=== PATIENT | male | born 1950 | race Caucasian/White ===

== ENCOUNTER 2018-10-17 18:01 | Emergency (ER) | payer MEDICARE ==
[2018-10-17] MEDS ORDERED: Ondansetron INJ* 2 MG/ML VIAL IV ONE (20:34)
[2018-10-17] MEDS ORDERED: NS 0.9% 1000 ML** 1,000 ML IV ONE ×2 (20:35→22:50)
--- NOTE | 2018-10-17 20:46 | ED ---
GI/ HPI - HPI Summary HPI Summary: Pt is a 68 y/o M presenting to the ED with a chief complaint of GI issues. He states he was on his way to work this morning when he got gas, and after getting back in the car he began vomiting, and it has not stopped. He also reports diaphoresis, shaking, nausea, slight abd pain, and hx of ulcerated esophagus. He denies diarrhea, constipation, CP, SOB, and hematuria. Standing worsens his sx, and lying down tends to alleviate it. - History of Current Complaint Chief Complaint: EDNauseaVomitDiarrh Time Seen by Provider: 10/17/18 20:01 Stated Complaint: DEHYDRATION/VOMITING PER PT Hx Obtained From: Patient Onset/Duration: Started Hours Ago, Still Present Timing: Constant, Lasting Hours Severity: Moderate Current Severity: Moderate Pain Intensity: 5 Location of Pain: Diffuse Associated Signs and Symptoms: Positive: Nausea, Vomiting, Diaphoresis, Abdominal Pain. Negative: Constipation, Diarrhea, Chest Pain, UTI Symptoms Aggravating Factor(s): Movement - standing Alleviating Factor(s): Lying Still - Allergy/Home Medications Allergies/Adverse Reactions: Allergies Allergy/AdvReac Type Severity Reaction Status Date / Time No Known Allergies Allergy Verified 10/17/18 18:09 PMH/Surg Hx/FS Hx/Imm Hx Previously Healthy: Yes Endocrine/Hematology History: Denies: Hx Diabetes, Hx Thyroid Disease Cardiovascular History: Reports: Hx Hypertension Denies: Hx Hypercholesterolemia, Hx Pacemaker/ICD, Hx Peripheral Vascular Disease Respiratory History: Reports: Hx Sleep Apnea - HAD A PROCEDURE FOR GI History: Reports: Hx Ulcer - 15 YEARS AGO Musculoskeletal History: Reports: Other Musculoskeletal History - obesity Denies: Hx Arthritis, Hx Rheumatoid Arthritis, Hx Osteoporosis Sensory History: Reports: Hx Contacts or Glasses - READING GLASSES Denies: Hx Hearing Aid Opthamlomology History: Reports: Hx Contacts or Glasses - READING GLASSES Neurological History: Denies: Hx Headaches, Hx Seizures, Hx Transient Ischemic Attacks (TIA) Psychiatric History: Reports: Hx Depression - ON MEDICATION FOR Denies: Hx Panic Disorder - Cancer History Cancer Type, Location and Year: none - Surgical History Surgery Procedure, Year, and Place: NASAL [id number]. 2012- ENT SURGERY Hx Anesthesia Reactions: No - Immunization History Immunizations Up to Date: Yes Infectious Disease History: No Infectious Disease History: Denies: Traveled Outside the [place] in Last 30 Days - Family History Known Family History: Positive: Hypertension - Social History Alcohol Use: Daily Hx Substance Use: No Substance Use Type: Reports: None Hx Tobacco Use: Yes Smoking Status (MU): Former Smoker Review of Systems Positive: Skin Diaphoresis, Other - shaking Negative: Chest Pain Negative: Shortness Of Breath Positive: Abdominal Pain, Vomiting, Nausea. Negative: Diarrhea, Other - constipation Negative: hematuria All Other Systems Reviewed And Are Negative: Yes Physical Exam - Summary Physical Exam Summary: Constitutional: Well-developed, Well-nourished, Alert. (-) Distressed Skin: Warm, Dry HENT: Normocephalic; Atraumatic Eyes: Conjunctiva normal Neck: Musculoskeletal ROM normal neck. (-) JVD, (-) Stridor, (-) Tracheal deviation Cardio: Rhythm regular, rate normal, Heart sounds normal; Intact distal pulses; The pedal pulses are 2+ and symmetric. Radial pulses are 2+ and symmetric. (-) Murmur Pulmonary/Chest wall: Effort normal. (-) Respiratory distress, (-) Wheezes, (-) Rales Abd: Soft, (-) tenderness, (-) Distension, (-) Guarding, (-) Rebound Musculoskeletal: (-) Edema Lymph: (-) Cervical adenopathy Neuro: Alert, Oriented x3 Psych: Mood and affect Normal Triage Information Reviewed: Yes Vital Signs On Initial Exam: Initial Vitals Temp Pulse Resp BP Pulse Ox 97.4 F 127 20 117/80 99 10/17/18 18:04 10/17/18 18:04 10/17/18 18:04 10/17/18 18:04 10/17/18 18:04 Vital Signs Reviewed: Yes Diagnostics - Vital Signs Vital Signs Temp Pulse Resp BP Pulse Ox 10/17/18 20:33 118 19 97 10/17/18 18:04 97.4 F 127 20 117/80 99 - Laboratory Result Diagrams: 10/17/18 21:05 10/17/18 21:05 Lab Statement: Any lab studies that have been ordered have been reviewed, and results considered in the medical decision making process. - EKG 2047 Cardiac Rate: Tachycardia - 108bpm EKG Rhythm: Sinus Tachycardia ST Segment: Non-Specific Ectopy: PVCs Summary of EKG Findings: EKG at 2047 shows sinus tachycardia at 108bpm with normal LA, LBBB, normal QTc, normal axis, elevated STs in v1, v2, v3, and depressed in v5, v6, and lead II, normal T-waves, there are some PVCs present. 2320 Cardiac Rate: Tachycardia - 110bpm EKG Rhythm: Sinus Tachycardia ST Segment: Non-Specific Ectopy: None Summary of EKG Findings: EKG at 2320 shows sinus tachycardia at 110bpm with nml LA, LBBB, nml QTc, elevated ST in v1, v3, and v4, inverted T waves in lead I and v6, EKG unchanged. Re-Evaluation - Re-Evaluation 1st re-eval Re-Evaluation Time: 22:49 Change: Unchanged Comment: Pt has no abd tenderness. He is slightly tachycardic but has no abd pain. GIGU Course/Dx - Course Course Of Treatment: Pt is a 68 y/o M presenting to the ED with a chief complaint of GI issues. He reports vomiting, diaphoresis, shaking, nausea, slight abd pain, and hx of ulcerated esophagus. He denies diarrhea, constipation , CP, SOB, and hematuria. Standing worsens his sx, and lying down tends to alleviate it. Pt's physical exam is nml. EKG at 2047 shows sinus tachycardia at 108bpm with normal LA, LBBB, normal QTc, normal axis, elevated STs in v1, v2 , v3, and depressed in v5, v6, and lead II, normal T-waves, there are some PVCs present. His physical exam is unremarkable. Pts lab results show MCH of 32, Chloride of 97, BUN/Creatinine ratio of 23.9, AST of 54, CRP of 12.61, and Lipase of <10. As of 2248, the pt has no abd tenderness. He is slightly tachycardic but has no abd pain. As of 99, the pt was able to ambulate around the emergency department without issues. EKG at 2320 shows sinus tachycardia at 110bpm with nml LA, LBBB, nml QTc, elevated ST in v1, v3, and v4 , inverted T waves in lead I and v6, EKG unchanged. Pt will be sent home with dx of nausea and vomiting. He is stable and agreeable with this plan. - Diagnoses Provider Diagnoses: Nausea and vomiting Discharge - Sign-Out/Discharge Documenting (check all that apply): Patient Departure Patient Received Moderate/Deep Sedation with Procedure: No - Discharge Plan Condition: Stable Disposition: HOME Prescriptions: Prochlorperazine TAB* [Compazine Tab*] 10 mg PO Q6H PRN #20 tab PRN Reason: Nausea Patient Education Materials: Dehydration (ED), Acute Nausea and Vomiting (ED) Print Language: GRENADIAN Referrals: Keith Marie MD [Primary Care Provider] - Additional Instructions: Please follow up with your primary care provider within the next 2-3 days. Return to the emergency department with any new or worsening symptoms. - Billing Disposition and Condition Condition: STABLE Disposition: Home - Attestation Statements Document Initiated by Scribe: Yes Documenting Scribe: Kelly Salas Provider For Whom Nathen is Documenting (Include Credential): Radha Novak MD. Scribe Attestation: Kelly Chris, scrdaciaed for Radha Palomo MD. on 10/18/18 at 0516. Scribe Documentation Reviewed: Yes Provider Attestation: The documentation as recorded by the scribeKelly accurately reflects the service I personally performed and the decisions made by me, Radha Palomo MD. Status of Scribe Document: Viewed
[2018-10-17 21:11] LABS: ABS Lymphocytes 0.3 10^3/ul (1.0-4.8); ABS Neutrophils 6.3 10^3/ul (1.5-7.7); Eosinophil % 0.1 %; Hematocrit 47 % (42-52); Hemoglobin 16.4 g/dL (14.0-18.0); Lymphocyte % 4.3 %; Mean Corpuscular HGB Conc 35 g/dL (31-36); Mean Corpuscular Hemoglobin 32 pg (27-31); Mean Corpuscular Volume 93 fL (80-94); Mean Platelet Volume 7.6 fL (7.4-10.4); Nucleated Red Blood Cells % 0.1; Platelet Count 299 10^3/uL (150-450); Red Blood Count 5.08 10^6 /uL (4.18-5.48); Red Cell Distribution Width 14 % (10-15); White Blood Count 7.6 10^3/uL (3.5-10.8)
[2018-10-17 21:29] LABS: ALT 50 U/L (7-52); AST 54 U/L (13-39); Albumin 4.4 g/dL (3.2-5.2); Albumin/Globulin Ratio 1.4 (1-3); Alkaline Phosphatase 48 U/L (34-104); Anion Gap 11 mmol/L (2-11); BUN/Creatinine Ratio 23.9 (8-20); Blood Urea Nitrogen 22 mg/dL (6-24); C Reactive Protein 12.61 mg/L (<8.01); CO2 Carbon Dioxide 28 mmol/L (22-32); Calcium 9.3 mg/dL (8.6-10.3); Chloride 97 mmol/L (101-111); EGFR African American 99.6 (>60); EGFR Non-African American 82.3 (>60); Globulin 3.1 g/dL (2-4); Glucose 151 mg/dL (70-100); Potassium 4.8 mmol/L (3.5-5.0); Sodium 136 mmol/L (135-145); Total Protein 7.5 g/dL (6.4-8.9)
[2018-10-17 21:30] LABS: Troponin I 0.01 ng/mL (<0.04)
[2018-10-17] MEDS ORDERED: PROCHLORPERAZINE INJ 5 MG/ML 2 ML VIAL IV ONE (22:05)
[2018-10-17 22:29] LABS: Urine Appearance Cloudy; Urine Bacteria Absent (Absent); Urine Bilirubin Negative (Negative); Urine Blood Negative (Negative); Urine Color Yellow; Urine Glucose Negative (Negative); Urine Ketones 1+ (Negative); Urine Nitrite Negative (Negative); Urine Protein 2+(100 mg/dL) (Negative); Urine Red Blood Cell Absent (Absent); Urine Squamous Epithelial Cell Present (Absent); Urine Urobilinogen Negative (Negative); Urine White Blood Cell Trace(0-5/hpf) (Absent)
[2018-10-18 01:43] VITALS: BP 169/95
--- NOTE | 2018-10-20 09:10 | PN ---
Progress Note - Progress Note Date of Service: 10/17/18 Note: Urine culture growing 1-10k GBS. According to ED note there were no urinary sxs. Will not treat at this time.
== END 2018-10-18 01:43 | disposition home or self-care (01) ==
LOC: ED 18:01
DX: R11.2 Nausea with vomiting, unspecified (principal); I10 Essential (primary) hypertension; Z87.891 Personal history of nicotine dependence
CPT/HCPCS: 36415; 80053; 81003; 81015; 83605; 83690; 83880; 84484; 85025; 86140; 87040; 87077; 87086; 93005; 96361; 96374; 96375; 99284; J0780; J2405

== ENCOUNTER 2019-06-01 06:31 | Day surgery (SDC) | payer MEDICARE ==
--- NOTE | 2019-05-31 18:22 | HP ---
PREOPERATIVE HISTORY AND PHYSICAL: DATE OF ADMISSION: 06/01/19 - [facility] ADMITTING PHYSICIAN: Dr. Janelle Thompson.* (DICTATED BY SHERRIE HORN) CHIEF COMPLAINT: Right elbow pain. HISTORY OF PRESENT ILLNESS: This is a 69-year-old male with several months of right elbow pain that began without known cause. He was treated with a course of doxycycline and he actually drained the elbow himself, which drained clear fluid. He continues to have persistent redness and pain over the elbow even after treatment and therefore is seeking surgical intervention with Dr. Thompson. PAST MEDICAL HISTORY: Hypertension, GERD, depression. PAST SURGICAL HISTORY: Knee scope in 2013, uvulopharyngeal plasty in 2013, multiple colonoscopies. He denies anesthetic complications with any of these procedures and no history of blood clot. CURRENT MEDICATIONS: 1. Amlodipine besylate 5 mg 1 tab p.o. daily. 2. Venlafaxine HCl ER 75 mg 1 capsule p.o. daily. 3. Bupropion HCl 75 mg 1 tablet p.o. daily. 4. Clonazepam 1 mg 1 to 2 tabs by mouth q.h.s. 5. Omeprazole 40 mg 1 capsule by mouth q.a.m. 6. Lisinopril 40 mg 1 tab by mouth daily. ALLERGIES: None. REVIEW OF SYSTEMS: Negative for cephalic, cardiovascular, respiratory, gastrointestinal, genitourinary, skin, neurologic, endocrine, or hematologic issues. No fevers or chills. PHYSICAL EXAMINATION GENERAL: He is a well-developed, well-nourished male, seated on exam table, in no acute distress, with appropriate affect. VITAL SIGNS: Height 73 inches, weight 192 pounds. Pulse 76, blood pressure 122 /68. HEENT: Normocephalic, atraumatic. Hearing and vision are grossly intact, with extraocular movements intact. NECK: The trachea is midline and symmetrical. LUNGS: Clear to auscultation. No wheezes, rales, or rhonchi appreciated. CARDIO: Regular rate and rhythm. Normal S1, S2. No murmurs, rubs, or gallops noted. ABDOMEN: Nondistended. MUSCULOSKELETAL: Right upper extremity: The right elbow has a moderate to large amount of erythematous swelling on the posterior aspect of the elbow that is firm to palpation with some mild fluctuance. He has normal range of motion of the elbow joint, with a small full-thickness skin lesion at the tip of the olecranon process. Skin is otherwise intact. Sensation is intact and 2+ radial pulse. IMAGING: X-rays performed previously, AP, lateral, and oblique of the right elbow appeared normal. IMPRESSION: Right olecranon bursitis. PLAN: Right olecranon bursectomy with Dr. Thompson. The patient's questions were answered and he would like to proceed. He will follow up postoperatively and call if questions or concerns otherwise. SHERRIE HORN [id number]/[facility] #: [id number] ANSELMO
[~2019-06-01 06:31] MED LIST: Buffered Lidocaine 1% SYRIN* 1 ML/SYRINGE INTRADERM ONE; Dexamethasone IV* 4 MG/ML 1 ML (4 MG) IV SLOW PU ONE; Dexamethasone IV* 4 MG/ML 1 ML (4 MG) ONE; Famotidine IV* 10 MG/ML 2 ML (20 mg) IV ONE; Famotidine IV* 10 MG/ML 2 ML (20 mg) ONE; Lactated Ringers 1000 ML Bag* 1,000 ML IV SCH
[2019-06-01] MEDS ORDERED: ceFAZolin 2 GM PREMIX in ORs 2 GM/50 ML BAG ONE (06:45)
[2019-06-01] MEDS ORDERED: Naloxone* 0.4 MG/ML 1 ML VIAL IV PRN (08:01)
[2019-06-01] MEDS ORDERED: Lidocaine 0.5%* 50 ML SDV ONE (08:08)
[2019-06-01] MEDS ORDERED: Midazolam* 1 MG/ML 2 ML VIAL (2 MG) ONE (08:15)
[2019-06-01] MEDS ORDERED: fentaNYL* 50 MCG/ML 2 ML VIAL (100 MCG VIAL) ONE (08:15)
[2019-06-01] MEDS ORDERED: Bupivacaine 0.5% SDV PF* 30ML VIAL ONE (08:17)
[2019-06-01 09:59] VITALS: BP 152/93
--- NOTE | 2019-06-01 10:01 | OP ---
DATE OF OPERATION: 06/01/19 [facility] DATE OF : 54 SURGEON: Janelle Thompson MD TEMPLATE CLERK: SHERRIE Hoff ANESTHESIA: IV regional. PRE-OP DIAGNOSIS: Right olecranon bursitis. POST-OP DIAGNOSIS: Right olecranon bursitis. OPERATIVE PROCEDURE: Right olecranon bursectomy. ESTIMATED BLOOD LOSS: Zero. TOURNIQUET TIME: Approximately 30 minutes. INDICATIONS FOR PROCEDURE: Prasanth is a 69-year-old male who has persistent swelling, pain, and redness at his right olecranon bursa. He has a wound that has been very slow to heal as well, although it is no longer draining. He presents for olecranon bursectomy on the right. DESCRIPTION OF PROCEDURE: The patient was brought to the operating room, was given a IV regional anesthetic with a tourniquet around his right upper arm. The skin of his right upper extremity was prepped and draped in usual sterile fashion. The upper extremity was exsanguinated and the tourniquet elevated to 250 mmHg. A longitudinal incision was made over the mass with an ellipse around the portion of incompletely healed skin. The bursa was carefully dissected away from the skin and from the triceps tendon and olecranon. There was some fragile tissue adjacent to the tendon and this was debrided with a rongeur. All of the tissue including the skin lesion was sent for pathology and cultures were obtained as well. The wound was copiously irrigated with saline, the subcutaneous tissue was closed with 3-0 Vicryl suture and the skin edges reapproximated with shaniqua. The wound is dressed with Xeroform, 4x4, Webril and Ignacio wrap with ABDs for compression dressing. The patient tolerated the procedure well and was brought to the recovery room in good condition. [id number]/[facility] #: [id number] ANSELMO
== END 2019-06-01 10:13 | disposition home or self-care (01) ==
LOC: OREAST 06:31
PROVIDERS: ATTEND Orthopaedic Surgery
DX: M70.21 Olecranon bursitis, right elbow (principal); I10 Essential (primary) hypertension; K21.9 Gastro-esophageal reflux disease without esophagitis; F32.9 Major depressive disorder, single episode, unspecified; G47.33 Obstructive sleep apnea (adult) (pediatric); R05 Cough; Z87.891 Personal history of nicotine dependence
CPT/HCPCS: 87070; 87073; 87077; 87186; 87205; 88304; J0690; J1100; J2250; J3010; J3490

== ENCOUNTER 2019-08-22 15:32 | Observation (INO) ==
[2019-08-22 16:20] LABS: ABS Eosinophils 0.2 10^3/ul (0-0.6); ABS Lymphocytes 1.2 10^3/ul (1.0-4.8); ABS Monocytes 0.6 10^3/ul (0-0.8); Eosinophil % 3.7 %; Hematocrit 45 % (42-52); Hemoglobin 15.4 g/dL (14.0-18.0); Lymphocyte % 24.5 %; Mean Corpuscular HGB Conc 35 g/dL (31-36); Mean Corpuscular Hemoglobin 32 pg (27-31); Mean Corpuscular Volume 92 fL (80-94); Mean Platelet Volume 8.2 fL (7.4-10.4); Nucleated Red Blood Cells % 0.2; Platelet Count 239 10^3/uL (150-450); Red Blood Count 4.84 10^6 /uL (4.18-5.48); Red Cell Distribution Width 13 % (10-15); White Blood Count 4.9 10^3/uL (3.5-10.8)
[2019-08-22 16:54] LABS: ALT 22 U/L (7-52); AST 26 U/L (13-39); Albumin/Globulin Ratio 1.4 (1-3); Alkaline Phosphatase 50 U/L (34-104); Anion Gap 10 mmol/L (2-11); BUN/Creatinine Ratio 18.3 (8-20); Blood Urea Nitrogen 24 mg/dL (6-24); CO2 Carbon Dioxide 27 mmol/L (22-32); Calcium 9.6 mg/dL (8.6-10.3); Chloride 100 mmol/L (101-111); Creatine Kinase 178 U/L (10-223); EGFR Non-African American 54.6 (>60); Globulin 2.9 g/dL (2-4); Glucose 62 mg/dL (70-100); Magnesium 1.5 mg/dL (1.9-2.7); Sodium 137 mmol/L (135-145); Total Protein 6.9 g/dL (6.4-8.9)
[2019-08-22 17:00] LABS: Alcohol, S < 10 mg/dL (<10)
[2019-08-22] MEDS ORDERED: Magnesium Sulfate IV 1GM/100ML 1 GM/100 ML BAG IV ONE ×2 (17:10→20:46)
[2019-08-22 17:11] LABS: TSH (Thyroid Stimulating Horm) 1.27 mcIU/mL (0.34-5.60)
[2019-08-22] MEDS: NS 0.9% 1000 ml BAG 1,000 ML IV SCH (17:28)
[2019-08-22 18:05] LABS: Urine Appearance Cloudy; Urine Bilirubin Negative (Negative); Urine Blood Negative (Negative); Urine Color Yellow; Urine Glucose Negative (Negative); Urine Ketones Negative (Negative); Urine Nitrite Negative (Negative); Urine Protein Negative (Negative); Urine Urobilinogen Negative (Negative)
[2019-08-22 18:25] LABS: Urine Benzodiazepine Screen None Detected (None Detect); Urine Opiates Screen None Detected (None Detect)
[2019-08-22] MEDS ORDERED: Ondansetron 4 mg VIAL 2 MG/ML 2 ml VIAL IV PRN (20:40)
[2019-08-22] MEDS ORDERED: NS 0.9% 1000 ml BAG 1,000 ML IV SCH (20:45)
[2019-08-22 21:22] LABS: Free T4 1.17 ng/dL (0.61-1.12)
[2019-08-22] MEDS: Heparin 5000 UNITS/ML VIAL(*) 1 ml vial SUBCUT SCH (22:41)
[2019-08-22 22:56] LABS: Activated Partial Thrombo Time 26.3 seconds (26.0-38.0); INR 0.9 (0.82-1.09)
[2019-08-23] MEDS: NS 0.9% 1000 ml BAG 1,000 ML IV SCH ×2 (00:11→08:02)
[2019-08-23 01:06] LABS: Urine Creatinine Concentration 189.45 mg/dL
[2019-08-23 05:36] LABS: ABS Eosinophils 0.3 10^3/ul (0-0.6); ABS Lymphocytes 1.6 10^3/ul (1.0-4.8); ABS Monocytes 0.5 10^3/ul (0-0.8); Eosinophil % 7.2 %; Hematocrit 42 % (42-52); Hemoglobin 14.8 g/dL (14.0-18.0); Mean Corpuscular HGB Conc 35 g/dL (31-36); Mean Corpuscular Hemoglobin 32 pg (27-31); Mean Corpuscular Volume 92 fL (80-94); Nucleated Red Blood Cells % 0.1; Platelet Count 207 10^3/uL (150-450); Red Blood Count 4.59 10^6 /uL (4.18-5.48); Red Cell Distribution Width 13 % (10-15); White Blood Count 4.5 10^3/uL (3.5-10.8)
[2019-08-23 05:43] LABS: Calcium 8.4 mg/dL (8.6-10.3); Magnesium 1.7 mg/dL (1.9-2.7); Potassium 3.6 mmol/L (3.5-5.0)
[2019-08-23] MEDS: Heparin 5000 UNITS/ML VIAL(*) 1 ml vial SUBCUT SCH ×2 (05:47→14:45)
[2019-08-23 05:49] LABS: BUN/Creatinine Ratio 20.8 (8-20); EGFR African American 89.2 (>60); EGFR Non-African American 73.7 (>60)
[2019-08-23] MEDS ORDERED: Venlafaxine XR 75 mg PO SCH (09:00)
[2019-08-23] MEDS ORDERED: NS 0.9% 500 ml BAG 500 ML IV ONE (14:26)
[2019-08-23 16:54] VITALS: BP 129/82
== END 2019-08-23 17:35 | disposition home or self-care (01) ==
LOC: MEDTELE 15:32 → ED 15:32 → MEDTELE 22:50
PROVIDERS: ADMIT Nurse Practitioner Family; ATTEND Internal Medicine